=== PATIENT | female | born 1955 | race Caucasian/White ===

== ENCOUNTER → 2016-05-03 | Outpatient (CLI) | payer OTHER ==
[~2016-05-03] MED LIST: CHOL1000 PO; CITA10TA8 PO; MAGN250T3 PO; MULT-506 PO; XNX25 PO
[2016-05-03 11:14] LABS: CHOLESTEROL/HDL RATIO 2.7
== END | disposition home or self-care (01) ==
LOC: C.LABBC 07:22
PROVIDERS: ATTEND Family Medicine
DX: Z00.00 Encounter for general adult medical examination without abnormal findings (principal); Z13.220 Encounter for screening for lipoid disorders; Z13.1 Encounter for screening for diabetes mellitus

== ENCOUNTER → 2016-06-11 | Outpatient (CLI) | payer OTHER ==
--- NOTE | 2016-06-11 13:33 | MAMMOGRAPHY REPORT ---
UNILATERAL RIGHT DIGITAL DIAGNOSTIC MAMMOGRAM TOMOSYNTHESIS WITH CAD AND TARGETED RIGHT ULTRASOUND: 06/11/2016 CLINICAL HISTORY: The patient reports 2 palpable lumps in her right breast and axilla. TECHNIQUE: Breast tomosynthesis in addition to standard 2D mammography was performed. Current study was also evaluated with a Computer Aided Detection (CAD) system. Right CC and MLO 2-D and tomosynth esis images and a right X CCL view were obtained. COMPARISON: Comparison is made to exams dated: 09/18/2015 ultrasound, 09/08/2015 mammogram, 09/05/2014 mammogram, 09/03/2013 mammogram, 08/25/2012 mammogram, and 08/19/2011 mammogram - [facility]. BREAST COMPOSITION: The tissue of the right breast is heterogeneously dense, which may obscure smal l masses. FINDINGS: A triangle marker diaz the site of one of the palpable lumps in the right upper outer br east far posteriorly. There are no suspicious masses, calcifications, or areas of architectural dis tortion noted in the right breast mammographically. There has been no significant interval change c ompared to prior exams. Targeted ultrasound was performed of the areas of the palpable lumps pointed out by the patient, one located approximately 9:30, 6 cm from the nipple. In the right breast at 10:00, 8 mm from the nipp le, there is an oval hypoechoic circumscribed 5 x 2 x 3 mm mass which contains central internal vasc ularity and is consistent with a morphologically normal intramammary lymph node. This may correspon d with the palpable lump felt by the patient. No suspicious masses or other suspicious abnormalitie s were seen in the right 9 to 10:00 breast region of the lump. Targeted ultrasound was performed of the other palpable lump pointed out by the patient, in the high right axilla. At the site of the palpable lump there is an oval hypoechoic circumscribed 7 x 2 x 6 mm mass, which also contains central internal vascularity and is consistent with a morphologically normal axillary lymph node. No suspicious masses were evident. IMPRESSION: ACR BI-RADS CATEGORY 2: BENIGN, TARGETED ULTRASOUND ACR BI-RADS CATEGORY 2: BENIGN The palpable lump in the high right axilla corresponds with a morphologically normal axillary lymph node. A morphologically normal 5 mm intramammary lymph node is also seen within the right breast at 10:00, which may correspond with the other palpable lump pointed out by the patient. No suspicious mammographic or sonographic abnormalities were seen in these regions. There is no mammographic or t argeted sonographic evidence of malignancy. Recommend clinical follow-up for the right breast/axill july lumps, and recommend routine bilateral screening mammograms which are due August 2016. The patient has been verbally notified of the results. Approximately 10% of breast cancers are not detected with mammography. A negative mammographic repor t should not delay biopsy if a clinically suggestive mass is present. eKllen Ying M.D. ah/:06/11/2016 10:37:23 Concrete Finisher Apprentice: Lachelle Stewart, [facility] letter sent: Normal 1/2 BI-RADS Code: ACR BI-RADS Category 2: Benign Ultrasound BI-RADS: ACR BI-RADS Category 2: Benign
== END | disposition home or self-care (01) ==
LOC: C.MAMM 09:09
PROVIDERS: ATTEND Obstetrics & Gynecology
DX: N63 Unspecified lump in breast (principal)

== ENCOUNTER → 2016-09-09 | Outpatient (CLI) | payer OTHER ==
--- NOTE | 2016-09-09 12:10 | MAMMOGRAPHY REPORT ---
BILATERAL DIGITAL SCREENING MAMMOGRAM TOMOSYNTHESIS WITH CAD: 09/09/2016 CLINICAL HISTORY: Routine screening. Patient has no complaints. TECHNIQUE: Breast tomosynthesis in addition to standard 2D mammography was performed. Current study was also evaluated with a Computer Aided Detection (CAD) system. COMPARISON: Comparison is made to exams dated: 06/11/2016 mammogram, 09/08/2015 mammogram, 09/05/2014 m ammogram, 09/03/2013 mammogram, 08/25/2012 mammogram, and 08/19/2011 mammogram - [facility]ter. BREAST COMPOSITION: The tissue of both breasts is heterogeneously dense, which may obscure small mas ses. FINDINGS: There are a few benign rim calcifications in the breasts. No suspicious mass, architectura l distortion or cluster of suspicious microcalcifications is seen. IMPRESSION: ACR BI-RADS CATEGORY 1: NEGATIVE There is no mammographic evidence of malignancy. A 1 year screening mammogram is recommended. The pa tient will receive written notification of the results. Approximately 10% of breast cancers are not detected with mammography. A negative mammographic report should not delay biopsy if a clinically suggestive mass is present. Mariposa Hair M.D. ay/:09/09/2016 08:06:25 Circus Artist: Susana HEATH(R)(M), [facility] letter sent: Normal 1/2 BI-RADS Code: ACR BI-RADS Category 1: Negative
== END | disposition home or self-care (01) ==
LOC: C.MAMM 07:33
PROVIDERS: ATTEND Obstetrics & Gynecology
DX: Z12.31 Encounter for screening mammogram for malignant neoplasm of breast (principal)

== ENCOUNTER → 2017-01-25 | Outpatient (CLI) | payer OTHER | END | disposition home or self-care (01) | LOC: C.PAPS 12:09 | PROVIDERS: ATTEND Obstetrics & Gynecology | DX: Z12.4 Encounter for screening for malignant neoplasm of cervix (principal) ==

== ENCOUNTER → 2017-03-21 | Outpatient (CLI) | payer OTHER | END | disposition home or self-care (01) | LOC: C.LAB1850 12:33 | PROVIDERS: ATTEND Obstetrics & Gynecology | DX: R39.9 Unspecified symptoms and signs involving the genitourinary system (principal) ==

== ENCOUNTER → 2017-05-20 | Outpatient (CLI) | payer OTHER | END | disposition home or self-care (01) | LOC: C.LABSPEC 17:14 | PROVIDERS: ATTEND Obstetrics & Gynecology | DX: Z11.3 Encounter for screening for infections with a predominantly sexual mode of transmission (principal); N76.0 Acute vaginitis ==

== ENCOUNTER → 2017-09-13 | Outpatient (CLI) | payer OTHER ==
[~2017-09-13] MED LIST changes: +ALPR0.254 PO; -XNX25 PO
--- NOTE | 2017-09-13 16:19 | MAMMOGRAPHY REPORT ---
BILATERAL DIGITAL SCREENING MAMMOGRAM TOMOSYNTHESIS WITH CAD: 09/13/2017 CLINICAL HISTORY: Routine screening. Patient has no complaints. TECHNIQUE: The study was acquired using full field digital technology and interpreted from soft copy. Breast tomosynthesis in addition to standard 2D mammography was performed. Current study was also ev aluated with a Computer Aided Detection (CAD) system. COMPARISON: Comparison is made to exams dated: 09/09/2016 mammogram, 06/11/2016 mammogram, 09/08/2015 m ammogram, 09/05/2014 mammogram, 09/03/2013 mammogram, and 08/25/2012 mammogram - [facility] nter. BREAST COMPOSITION: The tissue of both breasts is heterogeneously dense, which may obscure small mass es. FINDINGS: The parenchymal pattern is similar to prior mammograms. There are a few scattered benign rim calcifi cations. No developing mass, architectural distortion or cluster of suspicious microcalcifications i s seen in either breast. IMPRESSION: ACR BI-RADS CATEGORY 2: BENIGN There is no mammographic evidence of malignancy. A 1 year screening mammogram is recommended.( [id number]) The patient will receive written notification of the results. Some breast cancers are not detected with mammography. A negative mammographic report should not janine y biopsy if a clinically suggestive mass is present. Mariposa Hair M.D. ay/:09/13/2017 08:00:37 Sewing Machine Operator Floorperson: RT Joseluis(Deanna)(M), [facility] letter sent: Normal 1/2 BI-RADS Code: ACR BI-RADS Category 2: Benign
== END | disposition home or self-care (01) ==
LOC: C.MAMM 07:38
PROVIDERS: ATTEND Obstetrics & Gynecology
DX: Z12.31 Encounter for screening mammogram for malignant neoplasm of breast (principal)